=== PATIENT | female | born 1990 | race Caucasian/White ===

== ENCOUNTER 2017-10-31 07:46 | Inpatient (IN) | payer BC, SELFPAY ==
[2017-10-31] MEDS: Normal Saline Flush 10 ML SYR IVP ×2 (08:00→14:17)
[2017-10-31] MEDS: Acyclovir 400 MG TAB PO ×2 (13:48→21:46)
[2017-10-31] MEDS: Lactated Ringers 1,000 ML 125 ML IV (14:16)
[2017-10-31] MEDS: Insulin NPH-Human 300 UNITS/3 ML PEN 10 UNIT SC (21:52)
[2017-11-01] MEDS: Ibuprofen 600 MG TAB PO ×2 (03:35→16:27)
--- NOTE | 2017-11-01 06:16 | ROE_ITS ---
DELIVERY NOTE DATE OF DICTATION November 01, 2017 DATE OF DICTATION October 31, 2017 SURGEON Rajendra Venegas MD DESCRIPTION Marcos is a 27-year-old G2, P1 presented for a staged induction because of gestational diabetes, whic h had excellent control. She tolerated misoprostol x2 doses yesterday, a single dose this morning and we shifted to Pitocin at about 2:00 p.m. Steady contractions yielded cervical change that was steady throughout the day. heart tones wer e excellent throughout, and mom tolerated early and active labor quite well. At around 11:00 p.m., ar tificial rupture of membranes occurred, cervix was about 5 or so centimeters. Shortly thereafter, co ntraction pattern became quite intense, quite a bit of vaginal and rectal pressure, and by 11:40, she was pushing, crowned at about 11:56, readily delivered the head, which restituted after being in an OA position. No nuchal cord. Easy shoulders, both anterior and posterior came out quite readily. The infant was transitioned to mom's abdomen. The cord was clamped at about 45 seconds and three vessels were noted. The baby was pink, spontaneous respirations, and did [id number] immediately. At about 10 minutes of age, the placenta was delivered using active management, IV Pitocin was started with de livery of the infant. The placenta was intact and inspected. Central insertion, no calcifications, it appeared normal. Apgars were 9 and 10. A small first-degree perineal laceration was sutured with run edmund Vicryl suture. Digital rectal exam showed no lacerations or extensions. The fundus was firm jus t below the umbilicus. Estimated blood loss about 300 cc. Mom tolerated the delivery quite well and w as shifting to the shower within an hour of delivery.
[2017-11-01] MEDS: Normal Saline Flush 10 ML SYR IVP (09:04)
[2017-11-01] MEDS: Acyclovir 400 MG TAB PO ×3 (09:04→22:03)
[2017-11-01] MEDS: Acetaminophen 325 MG TAB 650 MG PO (16:27)
[2017-11-01] MEDS: Diph,Pertuss(Acell),Tet Vac/Pf 0.5 ML SYR IM (16:38)
[2017-11-01] MEDS: Docusate Sodium 100 MG CAP PO (16:44)
--- NOTE | 2017-11-01 19:50 | DISCHARGE ---
Discharge - Discharge Orders - Discharge Plan Disposition: HOME Condition: Good Diet:: As Tolerated Equipment/Supplies:: No Equipment Needed Activity:: Activity as Tolerated (call or return if you have questions or problems [phone] or [phone]) - Instructions
[2017-11-02] MEDS: Docusate Sodium 100 MG CAP PO (07:58)
[2017-11-02] MEDS: Acyclovir 400 MG TAB PO (07:58)
--- NOTE | 2017-11-02 11:07 | DSE_ITS ---
DISCHARGE SUMMARY DATE OF DISCHARGE November 02, 2017 STACIE Rodríguez delivered as per delivery note. Postoperative course was very straightforward. Minimal lochia. She as able to do all of her own self-care readily and good bowel function. She slept well. She ate well. initiation occurred quite well and she felt more confident as time went on with breastf eeding skills. We discussed at length family planning needs and wishes. At this point, condoms are her preferred cho ice. She knows that OCP's or LARCs are certainly an option. We had a long talk about her gestational diabetes being no longer an issue now that she is no longer . She is aware though that it puts her at higher risk for type 2 diabetes in the future. We discussed some weight goals. She would like to be about 150, which is weight. I reminded he r that daily exercise and avid will help her achieve that goal. She has made some signi ficant diet changes during this , and I have asked her to continue to be very sparing with c oncentrated Carbs, in particular sodas, cakes, cookies, juices. PHYSICAL EXAMINATION Exam today, showed fundus two fingers below the umbilicus. Soft abdomen. No pedal edema. 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 Quite minimal lochia. ASSESSMENT Excellent course. PLAN Followup at [place] in the middle of the week. She knows to call or seek care sooner if she has a ny questions for or care. CC: [place]
== END 2017-11-02 10:50 | disposition home or self-care (01) | DRG 775 ==
LOC: OBS 11-29 12:08
PROVIDERS: Admitting Provider Family Medicine; PCP Pediatrics; Visit Provider Family Medicine
DX: O24.424 Gestational diabetes mellitus in childbirth, insulin controlled (principal); Z37.0 Single live birth; O70.0 First degree perineal laceration during delivery; O62.3 Precipitate labor; Z3A.38 38 weeks gestation of pregnancy
CPT/HCPCS: 85027; 59200; 84030; J3490